=== PATIENT | female | born 1960 | race Caucasian/White ===

== ENCOUNTER 2016-05-28 07:02 | Emergency (ER) | payer OTHER ==
[~2016-05-28] VITALS: Ht 170.2 cm; Wt 95.4 kg
[2016-05-28 08:17] LABS: ASPARTATE AMINO TRANSFERASE 16 U/L (15-37); BLOOD UREA NITROGEN 19 mg/dL (7-18)
[2016-05-28] MEDS ORDERED: HYDROcodone/APAP 10/325 MG TABLET ONE (08:38)
[2016-05-28 08:56] LABS: ICTOTEST NEGATIVE
[2016-05-28] MEDS ORDERED: HYDROcodone/APAP 10/325 MG TABLET PO ONE (09:00)
[2016-05-28 10:48] VITALS: BP 119/77
== END 2016-05-28 10:53 | disposition home or self-care (01) ==
LOC: ED 09:16
DX: N20.1 Calculus of ureter (principal); N28.9 Disorder of kidney and ureter, unspecified
CPT/HCPCS: 36415; 74176; 80053; 81001; 85025; 87086